=== PATIENT | female | born 1995 | race African-American/Black ===

== ENCOUNTER 2018-01-24 11:23 | Day surgery (SDC) | payer BC ==
[2018-01-24] MEDS ORDERED: Heparin 5,000 UNITS/ML VIAL ONE (12:10)
[2018-01-24] MEDS ORDERED: CEFAZOLIN 2 GM/50 ML BAG ONE (12:10)
[2018-01-24] MEDS ORDERED: Gabapentin 300 MG CAP ONE (12:36)
[2018-01-24] MEDS ORDERED: EPINEPHrine 1 MG/ML AMP ONE (13:03)
[2018-01-24] MEDS ORDERED: Lidocaine 1% (PF) 30 ML VIAL ONE (13:03)
[2018-01-24] MEDS ORDERED: Sodium Chloride 0.9% 10 ML ONE (13:03)
[2018-01-24] MEDS ORDERED: Bupivacaine/Epinephrine 0.25% 30 ML VIAL ONE (13:03)
[2018-01-24] MEDS ORDERED: Gentamicin 80 MG/2 ML VIAL ONE (13:03)
[2018-01-24] MEDS ORDERED: Scopolamine 1.5 mg/72 hour Patch ONE (13:04)
[2018-01-24] MEDS ORDERED: Midazolam HCl 2 mg/2 ml Vial ONE (13:04)
[2018-01-24] MEDS ORDERED: Morphine 4 MG/ML VIAL ONE (13:07)
[2018-01-24] MEDS ORDERED: Fentanyl 250 MCG/5 ML VIAL ONE (13:07)
[2018-01-24] MEDS ORDERED: Lidocaine 1% PF 5 ML VIAL ONE (13:19)
[2018-01-24] MEDS ORDERED: Dexamethasone 20 MG/5 ML VIAL ONE (13:19)
[2018-01-24] MEDS ORDERED: Ondansetron PF 4 MG/2 ML Vial ONE (13:19)
[2018-01-24] MEDS ORDERED: PROPOFOL 200 MG/20 ML VIAL ONE (13:19)
[2018-01-24] MEDS ORDERED: cloNIDine 0.2 MG TAB PO SCH (13:30)
[2018-01-24] MEDS ORDERED: Fentanyl 100 MCG/2 ML VIAL ONE ×3 (14:24→17:20)
[2018-01-24] MEDS ORDERED: PROPOFOL 20 ML ONE (14:24)
[2018-01-24] MEDS ORDERED: HYDROmorphone 2 MG/ML VIAL ONE (14:24)
--- NOTE | 2018-01-29 08:47 | OP ---
DATE OF PROCEDURE: 01/24/2018 PREOPERATIVE DIAGNOSIS: Macromastia. POSTOPERATIVE DIAGNOSIS: Macromastia. PROCEDURE: Bilateral breast reduction (34292.50) DESCRIPTION OF PROCEDURE: Following induction of adequate anesthesia, the patient was prepped and draped in the usual sterile fashion in the supine position. The patient was preoperatively marked in the modified French pattern to aid breast reduction. The nipple was circumcised around a 42 mm nipple sizer. The inferior pole was then deepithelialized. Skin flaps were raised superiorly, medially, and laterally. units were resected superiorly, medially, and laterally central mound to protect viability and sensibility. The inverted-T closure was performed with 3-0 PDS suture and the nipple was brought out though a 42-mm nipple defect and then set with 3-0 PDS suture and 3-0 Monocryl suture. Similar procedure was done on each side. All christiansen were copiously irrigated and inspected for meticulous hemostasis prior to closure. The patient tolerated the procedure well. Job ID: [id number]
== END 2018-01-24 18:50 | disposition home or self-care (01) ==
LOC: SDC 11:23
PROVIDERS: ATTEND Plastic Surgery
PROC: 0HBV0ZZ Excision of Bilateral Breast, Open Approach (ICD-10-PCS; principal; 2018-01-24)
DX: N60.32 Fibrosclerosis of left breast (principal); N60.31 Fibrosclerosis of right breast; N62 Hypertrophy of breast; Z79.3 Long term (current) use of hormonal contraceptives
CPT/HCPCS: 88305; 96374; J0131; J0171; J1100; J1170; J1580; J1644; J2001; J2250; J2270; J2405; J2704; J3010; J3370; J3490

== ENCOUNTER 2019-03-31 08:03 | Outpatient (CLI) | payer BC ==
--- NOTE | 2019-03-31 09:24 | CT ---
EXAM: CT face with contrast HISTORY: Facial mass is getting larger and more tender. COMPARISON: None TECHNIQUE: Multiple contiguous axial images were obtained and a CT of the face with contrast. Sagitta l and coronal reformats were performed. FINDINGS: There is a 2.5 cm mass in the right face near the right mandible. This demonstrates internal phlebol iths and multiple small vessels course up to this mass. This is not associated with the salivary glands. No focal fluid collection is identified. The globes and retrobulbar soft tissues are unremar kable. No facial fractures are identified. A small amount of fluid is seen in the right maxillary sinus. The other visualized paranasal sinuses are well aerated without evidence of opacification. The mastoid air cells are well aerated. Visualized intracranial structures are unremarkable. 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
[2019-03-31] MEDS ORDERED: Iopamidol-370 76% 500 ML 1 ML ONE (13:56)
== END 2019-03-31 08:04 | disposition home or self-care (01) ==
LOC: BICCT 08:03
PROVIDERS: ATTEND Dentist Oral and Maxillofacial Surgery
DX: R22.0 Localized swelling, mass and lump, head (principal)
CPT/HCPCS: 70487; Q9967